=== PATIENT | male | born 1990 | race Caucasian/White ===

== ENCOUNTER 2016-12-11 12:20 | Emergency (ER) | payer OTHER ==
[2016-12-11 12:59] VITALS: O2SAT 99
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
--- NOTE | 2016-12-11 13:33 | RAD ---
PROCEDURE: Right Hand Radiographs. HISTORY: pain s.p fall yesterday COMPARISON: None. FINDINGS: BONES: Acute fracture at the proximal and mid shaft of the 4th metacarpal bone is noted. JOINTS: Normal. No osteoarthritic changes. SOFT TISSUES: Normal. OTHER FINDINGS: None. IMPRESSION: Fourth metacarpal bone acute fracture.
[2016-12-11 13:54] VITALS: BP 112/67; PULSE 67; RESP 20; TEMP 98
== END 2016-12-11 13:57 | disposition home or self-care (01) ==
LOC: C.ER 12:20
DX: S62.324A Displaced fracture of shaft of fourth metacarpal bone, right hand, initial encounter for closed fracture (principal); V19.88XA Pedal cyclist (driver) (passenger) injured in other specified transport accidents, initial encounter; Y93.55 Activity, bike riding; Y92.410 Unspecified street and highway as the place of occurrence of the external cause

== ENCOUNTER 2017-07-13 18:59 | Emergency (ER) | payer OTHER ==
[2017-07-13 19:08] VITALS: BP 127/76; PULSE 64; RESP 20; TEMP 98.4; O2SAT 99
[2017-07-13 19:09] VITALS: BMI 26.6
[2017-07-13] MEDS ORDERED: Tetracaine 0.5% Ophth (OR ONLY) ONE (19:14)
[2017-07-13] MEDS ORDERED: Fluorescein 1 mg Ophthalmic Strip ONE (19:15)
[2017-07-13] MEDS ORDERED: Fluorescein 1 mg Ophthalmic Strip OD ONE (19:44)
[2017-07-13] MEDS ORDERED: Tetracaine 0.5% Ophth 2 ML BOTTLE OU ONE (19:44)
--- NOTE | 2017-07-13 19:44 | C.PDOC ---
History Of Present Illness 27 yo male c/o c/o right eye pain which started just prior to arrival. Friend notes pt was cutting wood with a saw and felt something go into his eye. No change in vision. Does not wear glasses. Denies fever, diplopia, discharge, or headache. Time Seen by Provider: 07/13/17 19:17 Chief Complaint (Nursing): Eye Problem History Per: Patient, Family History/Exam Limitations: no limitations Onset/Duration Of Symptoms: Mins Current Symptoms Are (Timing): Still Present Past Medical History Vital Signs: Last Vital Signs Temp 98.4 F 07/13/17 19:07 Pulse 64 07/13/17 19:07 Resp 20 07/13/17 19:07 BP 127/76 07/13/17 19:07 Pulse Ox 99 07/13/17 19:45 Family History: States: Unknown Family Hx - Social History Hx Alcohol Use: Yes Hx Substance Use: No - Immunization History Hx Tetanus Toxoid Vaccination: No Hx Influenza Vaccination: No Hx Pneumococcal Vaccination: No Review Of Systems Constitutional: Negative for: Fever Eyes: Positive for: Pain. Negative for: Vision Change, Conjunctivae Inflammation, Eyelid Inflammation Physical Exam - Physical Exam Appears: Well, Non-toxic, No Acute Distress Skin: Normal Color, Warm, Dry Head: Atraumatic, Normacephalic Eye(s): bilateral: PERRL, EOMI (No pain), right: Other ((+) increased tearing, mild injection, no FB visible, (+) fluoro uptake at 11 oclock) Nose: Normal Oral Mucosa: Moist Neck: Normal, Normal ROM, Supple Chest: Symmetrical Respiratory: No Accessory Muscle Use Back: Normal Inspection Extremity: Normal ROM Neurological/Psych: Oriented x3, Normal Speech ED Course And Treatment O2 Sat by Pulse Oximetry: 99 Progress Note: PT notes his eye feels better after the tetracaine. Eye was irrigated by RN. Pt was instructed to follow up with eye doctor tomorrow or return to ER if symtpoms persist or worsen. Disposition - Disposition Referrals: Jayme Grier [Staff Provider] - Disposition: HOME/ ROUTINE Disposition Time: 19:42 Condition: STABLE Additional Instructions: Follow up with the eye doctor in tomorrow. Return to ER if symptoms persist or worsen. Prescriptions: Tobramycin 0.3% [Tobramycin 5 Ml] 1 drop OP Q4 #1 bottle Instructions: Corneal Abrasion (ED) Forms: [facility] (Uzbek) - Clinical Impression Clinical Impression: Corneal abrasion
== END 2017-07-13 19:54 | disposition home or self-care (01) ==
LOC: C.ER 18:59
DX: S05.01XA Injury of conjunctiva and corneal abrasion without foreign body, right eye, initial encounter (principal); X58.XXXA Exposure to other specified factors, initial encounter